=== PATIENT | female | born 1975 | race Hispanic/Latino ===

== ENCOUNTER 2020-03-07 21:09 | Emergency (ER) | payer SELFPAY ==
[2020-03-07] MEDS ORDERED: ONDANSETRON 4 MG/2 ML INJ IV ONE (21:17)
[2020-03-07] MEDS ORDERED: SODIUM CHLORIDE 0.9% 1000 ML 1,000 ML IV ONE (21:17)
--- NOTE | 2020-03-07 21:40 | Emergency Department Report ---
HPI - General Time Seen by Provider: 03/07/20 21:16 - HPI HPI: This is a 44-year-old female presents to the emergency department via EMS from the [facility] after having a witnessed seizure. 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 She has been using heroin for the past 2 years intermittently and previous to that had a history of pill abuse. Allegedly, per her records from the facility, the patient has not used pills for the past 5 to 6 years. There is also some records that show that she has had previous withdrawal seizures. The patient vomited upon arrival to our emergency department. She is currently a poor historian secondary to her current condition. ED Review of Systems ROS: Stated complaint: SEIZURE Other details as noted in HPI Comment: Unobtainable due to pts medical conditions Physical Exam - Physical Exam Vital Signs: Vital Signs 03/07/20 21:29 Temperature 97.6 F Pulse Rate 61 Respiratory 16 Rate Blood Pressure 142/75 [Left] O2 Sat by Pulse 100 Oximetry Physical Exam: GENERAL: Patient is rolling around on the gurney. HENT: Normocephalic. Atraumatic. Patient has moist mucous membranes. EYES: Extraocular motions are intact. Pupils equal reactive to light bilaterally. NECK: Supple. Trachea is midline. CHEST/LUNGS: Clear to auscultation. There is no respiratory distress noted. HEART/CARDIOVASCULAR: Regular. There is no tachycardia. There is no murmur. ABDOMEN: Abdomen is soft, nontender. Patient has normal bowel sounds. SKIN: Skin is warm and dry. NEURO: The patient is awake and either confused or not cooperative. MUSCULOSKELETAL: There is no tenderness or deformity. There is no limitation range of motion. ED Course Vital Signs 03/07/20 21:29 Temperature 97.6 F Pulse Rate 61 Respiratory 16 Rate Blood Pressure 142/75 [Left] O2 Sat by Pulse 100 Oximetry - Reevaluation(s) Reevaluation #1: The patient is now awake, alert, oriented, AAO x 3. She says that she is withdrawing from Suboxone and "possibly some other stuff." She complains of nausea, body aches and chills. Patient is unaware that she had a seizure but does admit that she had a seizure 1 time in the past when she was withdrawing from heroin. 03/07/20 22:37 ED Medical Decision Making - Lab Data Result diagrams: 03/07/20 21:25 03/07/20 21:25 - EKG Data -: EKG Interpreted by Me EKG shows normal: sinus rhythm, axis, intervals, QRS complexes, ST-T waves Rate: normal - EKG Data When compared to previous EKG there are: previous EKG unavailable Interpretation: normal EKG - Radiology Data Radiology results: report reviewed CT head/brain wo con INDICATION / CLINICAL INFORMATION: Seizure(s). TECHNIQUE: All CT scans at this location are performed using CT dose reduction for ALARA by means of automated exposure control. COMPARISON: None available. FINDINGS: Ventricle size is normal. No mass or mass effect is seen. There is no evidence of intracranial hemorrhage. No obvious area of infarction is identified. Visualized paranasal sinuses are clear. IMPRESSION: No acute findings - Medical Decision Making This patient presents from her detox center after there was some witnessed seizure-like activity. At first the patient does appear either confused or not cooperative and it is possible that she was postictal. She vomited upon arrival and then 1 more time later in her ED course. A CT scan of the head without contrast was done that did not show any bleed, shift, mass, ischemia, or any other acute process. The patient was reevaluated shortly after her arrival and was more awake, alert and oriented. She still complained of some withdrawal type symptoms including the nausea and vomiting, chills, body aches. She says that she is withdrawing from Suboxone. Her labs are mostly unremarkable except for signs of mild dehydration and a urine drug screen positive for marijuana. Patient was given IV fluid resuscitation, IV anti-emetics, and 2 doses of Ativan. Her vital signs have been reassuring throughout her ED course including being afebrile. She has been reevaluated multiple times over multiple hours and appears improved. There is been no further vomiting and the patient has been able to pass an oral challenge. She still has some withdrawal symptoms but this can be managed by the [facility]. There has been no further seizure-like activity. She has been instructed to return to the closest emergency department with any further seizures, worsening of her symptoms, or with any acute distress. I discussed all the labs and imaging with the patient, as well as the plan for discharge to the detox center, and she understands and agrees to the plan. Critical Care Time: No Critical care attestation.: If time is entered above; I have spent that time in minutes in the direct care of this critically ill patient, excluding procedure time. ED Disposition Clinical Impression: Seizure Withdrawal symptoms, drug or narcotic Qualifiers: Substance type: sedative, hypnotic or anxiolytic Qualified Code(s): F13.239 - Sedative, hypnotic or anxiolytic dependence with withdrawal, unspecified Nausea & vomiting Qualifiers: Vomiting type: unspecified Vomiting Intractability: non-intractable Qualified Code(s): R11.2 - Nausea with vomiting, unspecified Disposition: DC-01 TO HOME OR SELFCARE Is pt being admited?: No Condition: Stable Instructions: Dehydration (ED), Acute Nausea and Vomiting (ED) Additional Instructions: Please continue with your detox/rehabilitation efforts. Avoid any further illicit drug use. Return to the emergency department with any worsening of your symptoms or with any acute distress. Referrals: PRIMARY CARE, [Primary Care Provider] - 3-5 Days Time of Disposition: 04:41
[2020-03-07] MEDS ORDERED: levETIRAcetam 1000 MG/NS 0.75% 1,000 MG/100 ML BAG IV ONE (21:41)
[2020-03-07 22:16] LABS: Basophils % (Auto) 0.2 % (0.0-1.8); Eosinophils # (Auto) 0.1 K/mm3 (0.0-0.4); Eosinophils % (Auto) 0.9 % (0.0-4.3); Lymphocytes # (Auto) 2.7 K/mm3 (1.2-5.4); Lymphocytes % (Auto) 25.6 % (13.4-35.0); Mean Corpuscular HGB Conc 36 % (30-34); Mean Corpuscular Volume 87 fl (79-97); Monocytes # (Auto) 0.9 K/mm3 (0.0-0.8); Platelet Count 318 K/mm3 (140-440); Red Blood Count 4.82 M/mm3 (3.65-5.03); Red Cell Distribution Width 13.6 % (13.2-15.2)
[2020-03-07 22:17] LABS: Hematocrit 42.1 % (30.3-42.9); Hemoglobin 15.1 gm/dl (10.1-14.3)
[2020-03-07] MEDS ORDERED: LORazepam 2 MG/ML VIAL IV ONE (22:18)
[2020-03-07 22:31] LABS: Alanine Aminotransferase 7 units/L (7-56); Albumin 4.7 g/dL (3.9-5); Blood Urea Nitrogen 16 mg/dL (7-17); Calcium 9.2 mg/dL (8.4-10.2); Hemolysis Index 2
[2020-03-07] MEDS ORDERED: METOCLOPRAMIDE 10 MG/2 ML INJ IV ONE (22:38)
[2020-03-07 22:49] LABS: BUN/Creatinine Ratio 27
[2020-03-08] MEDS ORDERED: SODIUM CHLORIDE 0.9% 1000 ML 1,000 ML IV ONE (00:10)
[2020-03-08] MEDS ORDERED: LORazepam 2 MG/ML VIAL IV ONE (00:14)
[2020-03-08] MEDS ORDERED: ONDANSETRON 4 MG/2 ML INJ IV ONE (01:39)
[2020-03-08 02:24] VITALS: BP 130/65
[2020-03-08 02:50] LABS: Amphetamine Screen,Urine PRESUMPTIVE NEGATIVE; Benzodiazepines Screen,Urine PRESUMPTIVE NEGATIVE; Cannabinoid Screen,Urine PRESUMPTIVE POSITIVE; Cocaine Screen,Urine PRESUMPTIVE NEGATIVE; Methadone Screen,Urine PRESUMPTIVE NEGATIVE; Opiate Screen,Urine PRESUMPTIVE NEGATIVE
--- NOTE | 2020-03-08 02:54 | Cat Scan Report ---
CT head/brain wo con INDICATION / CLINICAL INFORMATION: Seizure(s). TECHNIQUE: All CT scans at this location are performed using CT dose reduction for ALARA by means of automated e xposure control. COMPARISON: None available. FINDINGS: Ventricle size is normal. No mass or mass effect is seen. There is no evidence of intracranial hemorr carlos. No obvious area of infarction is identified. Visualized paranasal sinuses are clear. IMPRESSION: No acute findings Signer Name: Jadiel Stallings MD FACR Signed: 03/08/2020 2:50 AM Workstation Name: [id number]
[2020-03-08 02:57] LABS: Bacteria,Urine 4+ /HPF (Negative); Bilirubin,Urine NEG (Negative); Blood,Urine MOD (Negative); Color,Urine Yellow (Yellow); Hyaline Casts,Urine 12 /LPF; Mucus,Urine 3+ /HPF; Protein,Urine <15 mg/dL mg/dL (Negative); Urobilinogen,Urine < 2.0 mg/dL (<2.0)
== END 2020-03-08 05:00 | disposition home or self-care (01) ==
LOC: ED 21:09
DX: G40.909 Epilepsy, unspecified, not intractable, without status epilepticus (principal); R11.2 Nausea with vomiting, unspecified; F13.239 Sedative, hypnotic or anxiolytic dependence with withdrawal, unspecified; Z88.8 Allergy status to other drugs, medicaments and biological substances
CPT/HCPCS: 36415; 70450; 80053; 80307; 81001; 82140; 82550; 84703; 85025; 93005; 96361; 96365; 96375; 96376; 99285; J1953; J2060; J2405; J2765; J7030; 80320; G0480